=== PATIENT | female | born 1950 | race American Indian/Alaskan Native ===

== ENCOUNTER 2017-04-18 19:44 | Emergency (ER) | payer MEDICARE ==
[2017-04-18 20:07] VITALS: BP 138/90
[2017-04-18] MEDS ORDERED: DELTASONE PO ONE (20:16)
[2017-04-18] MEDS ORDERED: BENADRYL PO ONE (20:16)
[2017-04-18] MEDS ORDERED: PEPCID PO ONE (20:16)
--- NOTE | 2017-04-18 21:04 | Emergency Department Report ---
HPI - General Chief Complaint: Allergic Reaction Time Seen by Provider: 04/18/17 20:16 ED Past Medical Hx - Past Medical History Hx Hypertension: Yes - Surgical History Past Surgical History?: No - Social History Smoking Status: Never Smoker Substance Use Type: None ED Review of Systems ROS: Stated complaint: SWOLLEN FACE Other details as noted in HPI Physical Exam - Physical Exam Vital Signs: Vital Signs 04/18/17 19:51 Temperature 97.7 F Pulse Rate 97 H Respiratory 20 Rate Blood Pressure 138/90 O2 Sat by Pulse 100 Oximetry ED Course Vital Signs 04/18/17 19:51 Temperature 97.7 F Pulse Rate 97 H Respiratory 20 Rate Blood Pressure 138/90 O2 Sat by Pulse 100 Oximetry Critical care attestation.: If time is entered above; I have spent that time in minutes in the direct care of this critically ill patient, excluding procedure time. ED Disposition Condition: Stable Referrals: PRIMARY CARE [Primary Care Provider] - 3-5 Days
--- NOTE | 2017-04-18 21:16 | Emergency Department Report ---
Entered by EFREM THOMASON, acting as scribe for SHARAD CARRASCO PA. ED Allergic Reaction HPI - General Chief complaint: Allergic Reaction Stated complaint: SWOLLEN FACE Source: patient Mode of arrival: Ambulatory Limitations: No Limitations - History of Present Illness Initial Comments: 67 y/o female with a PMHx of HTN presents to the ED c/o an allergic reaction that began this morning. Patient's family states they believe she unknowingly took Lisinopril last night, which she is allergic too. She subsequently woke up this morning with facial swelling. In the ED, the patient c/o facial and lip swelling, but she denies SOB, rash, itching, difficulty breathing, nausea, and vomiting. Took 1 tablet of Benadryl this afternoon at 13:30 with no relief of swelling. MD Complaint: allergic reaction -: This morning Exposure: unknown, medication (possibly Lisinopril) Symptoms: facial swelling, lip swelling. denies: rash, itching, difficulty swallowing, difficulty breathing, orolingual swelling, hoarseness, dizziness, nausea, vomiting, abdominal pain Severity: mild Treatment Prior to Arrival: benadryl Previous Allergy History: other (Lisinopril) - Related Data Previous Rx's Medication Instructions Recorded Last Taken Type Cetirizine HCl [ZyrTEC] 10 mg PO QDAY #30 capsule 04/18/17 Unknown Rx Famotidine [Pepcid] 40 mg PO QHS #30 tablet 04/18/17 Unknown Rx Prednisone [predniSONE 5 mg (6-Day 5 mg PO .TAPER #1 tab.ds.pk 04/18/17 Unknown Rx Pack, 21 Tabs)] Allergies Allergy/AdvReac Type Severity Reaction Status Date / Time lisinopril Allergy Angioedema Verified 04/18/17 20:06 ED Review of Systems Comment: All other systems reviewed and negative Constitutional: no symptoms reported. denies: chills, fever, weakness ENT: denies: ear pain, throat pain Respiratory: no symptoms reported. denies: cough, orthopnea, shortness of breath, SOB with exertion, SOB at rest, stridor, wheezing, other (difficulty breathing) Cardiovascular: denies: chest pain, palpitations, edema, syncope Endocrine: no symptoms reported Gastrointestinal: denies: abdominal pain, nausea, vomiting Musculoskeletal: other (facial and lip swelling) Skin: denies: rash Neurological: denies: headache ED Past Medical Hx - Past Medical History Previous Medical History?: Yes Hx Hypertension: Yes - Surgical History Past Surgical History?: No - Social History Smoking Status: Never Smoker Substance Use Type: None - Medications Home Medications: Home Medications Medication Instructions Recorded Confirmed Last Taken Type Cetirizine HCl [ZyrTEC] 10 mg PO QDAY #30 capsule 04/18/17 Unknown Rx Famotidine [Pepcid] 40 mg PO QHS #30 tablet 04/18/17 Unknown Rx Prednisone [predniSONE 5 mg (6-Day 5 mg PO .TAPER #1 tab.ds.pk 04/18/17 Unknown Rx Pack, 21 Tabs)] ED Physical Exam - General Limitations: No Limitations General appearance: alert, in no apparent distress - Head Head exam: Present: atraumatic, normocephalic, other (facial and lip swelling) - Eye Eye exam: Present: normal appearance, PERRL, EOMI Pupils: Present: normal accommodation - ENT ENT exam: Present: normal exam, mucous membranes moist - Neck Neck exam: Present: normal inspection, full ROM. Absent: tenderness, lymphadenopathy - Respiratory Respiratory exam: Present: normal lung sounds bilaterally. Absent: respiratory distress, wheezes, rales, rhonchi, stridor - Cardiovascular Cardiovascular Exam: Present: regular rate, normal rhythm, normal heart sounds. Absent: systolic murmur, diastolic murmur, rubs, gallop - GI/Abdominal GI/Abdominal exam: Present: soft, normal bowel sounds - Extremities Exam Extremities exam: Present: normal inspection, full ROM - Back Exam Back exam: Present: normal inspection, full ROM - Neurological Exam Neurological exam: Present: alert, oriented X3 - Psychiatric Psychiatric exam: Present: normal affect, normal mood - Skin Skin exam: Present: warm, dry, intact, other (facial and lip swelling present). Absent: rash ED Course Vital Signs 04/18/17 19:51 Temperature 97.7 F Pulse Rate 97 H Respiratory 20 Rate Blood Pressure 138/90 O2 Sat by Pulse 100 Oximetry ED Medical Decision Making - Medical Decision Making Patient was evaluated in fast track area of ED by this provider. Patient presented with an allergic reaction that began this morning. In the ED, patient will be given Benadryl, Prednisone, and Pepcid. Patient is in no acute distress at this time and will be discharged home in care of family. Family instructed to continue giving Benadryl if swelling persists. Family instructed to follow up with PCP if patient's symptoms persist. Family verbalized understanding. They are encouraged to return to the emergency room for any worsening symptoms. ED Disposition Clinical Impression: Angio-edema Qualifiers: Encounter type: initial encounter Qualified Code(s): T78.3XXA - Angioneurotic edema, initial encounter Disposition: DISCHARGED TO HOME OR SELFCARE Is pt being admited?: No Does the pt Need Aspirin: No Condition: Stable Instructions: Angioedema (ED) Additional Instructions: Please take medications as prescribed. follow up with your primary care provider. Please do not take Lisinopril. Prescriptions: Famotidine [Pepcid] 40 mg PO QHS #30 tablet Cetirizine HCl [ZyrTEC] 10 mg PO QDAY #30 capsule Prednisone [predniSONE 5 mg (6-Day Pack, 21 Tabs)] 5 mg PO .TAPER #1 tab.ds.pk Referrals: PRIMARY CARE,MD [Primary Care Provider] - 3-5 Days Forms: Work/School Release Form(ED) This documentation as recorded by the KATELIN robb JASMINE,accurately reflects the service I personally performed and the decisions made by me, SHARAD CARRASCO PA.
== END 2017-04-18 21:33 | disposition home or self-care (01) ==
LOC: ED 19:44
DX: T78.3XXA Angioneurotic edema, initial encounter (principal); I10 Essential (primary) hypertension; Z88.8 Allergy status to other drugs, medicaments and biological substances
CPT/HCPCS: 99282; J7512

== ENCOUNTER 2017-10-11 07:47 | Inpatient (IN) | payer MEDICARE ==
[2017-10-11] MEDS ORDERED: VITAMIN B-1 100 MG, FOLVITE 1 MG, INFUVITE 10 ML in NACL 0.9% 1000 ML 1,000 ML IV ONE (08:28)
[2017-10-11] MEDS ORDERED: ATIVAN IV ONE (08:28)
--- NOTE | 2017-10-11 08:33 | Emergency Department Report ---
ED General Adult HPI - General Chief complaint: Seizure Stated complaint: SEIZURE Time Seen by Provider: 10/11/17 08:05 Source: family, EMS (ems notes not available at time of chart dictation), RN notes reviewed, old records reviewed Mode of arrival: Stretcher Limitations: Physical Limitation, Other (patient is intoxicated. Patient is a poor historian) - History of Present Illness Initial comments: This is a 67-year-old female. She is previously unknown to this provider. She recently moved here from [place] a few months ago. Has a history of daily alcohol consumption and hypertension. Does not have a primary care doctor. History is obtained primarily by speaking to the patient's daughter, Hannah; [phone] Patient is brought to the hospital for possible seizure-like activity. As per her daughter, the patient had a convulsion, patient has been consuming alcohol today. The patient has no complaints at this time. The patient indicates no exacerbating or relieving factors. Patient indicates no radiation. Patient denies headache, neck pain, chest pain, abdominal pain, shortness of breath, urinary symptoms, denies homicidality and suicidality. -: Sudden Severity scale (0 -10): 0 Consistency: now resolved Improves with: none Worsens with: none Associated Symptoms: confusion, syncope (convulsion versus syncope). denies: chest pain, cough - Related Data Home Medications Medication Instructions Recorded Confirmed Last Taken Hydrochlorothiazide [HCTZ] 25 mg PO QDAY 10/11/17 10/11/17 3 Days Ago NIFEdipine [Nifedipine ER] 10/11/17 3 Days Ago NIFEdipine [Nifedipine ER] 30 mg PO 10/11/17 3 Days Ago Rosuvastatin Calcium [Crestor] 20 mg PO DAILY 10/11/17 10/11/17 1 Day Ago busPIRone [Buspar] 60 mg PO BID 10/11/17 10/11/17 1 Day Ago hydrALAZINE [Apresoline] 25 mg PO Q8HR 10/11/17 10/11/17 3 Days Ago Previous Rx's Medication Instructions Recorded Last Taken Type Cetirizine HCl [ZyrTEC] 10 mg PO QDAY #30 capsule 04/18/17 Unknown Rx Famotidine [Pepcid] 40 mg PO QHS #30 tablet 04/18/17 Unknown Rx Prednisone [predniSONE 5 mg (6-Day 5 mg PO .TAPER #1 tab.ds.pk 04/18/17 Unknown Rx Pack, 21 Tabs)] Allergies Allergy/AdvReac Type Severity Reaction Status Date / Time lisinopril Allergy Angioedema Verified 04/18/17 20:06 ED Review of Systems ROS: Stated complaint: SEIZURE Other details as noted in HPI Comment: Unobtainable due to pts medical conditions ED Past Medical Hx - Past Medical History Hx Hypertension: Yes - Social History Smoking Status: Never Smoker Substance Use Type: Alcohol - Medications Home Medications: Home Medications Medication Instructions Recorded Confirmed Last Taken Type Cetirizine HCl [ZyrTEC] 10 mg PO QDAY #30 capsule 04/18/17 Unknown Rx Famotidine [Pepcid] 40 mg PO QHS #30 tablet 04/18/17 Unknown Rx Prednisone [predniSONE 5 mg (6-Day 5 mg PO .TAPER #1 tab.ds.pk 04/18/17 Unknown Rx Pack, 21 Tabs)] Hydrochlorothiazide [HCTZ] 25 mg PO QDAY 10/11/17 10/11/17 3 Days Ago History NIFEdipine [Nifedipine ER] 10/11/17 3 Days Ago History NIFEdipine [Nifedipine ER] 30 mg PO 10/11/17 3 Days Ago History Rosuvastatin Calcium [Crestor] 20 mg PO DAILY 10/11/17 10/11/17 1 Day Ago History busPIRone [Buspar] 60 mg PO BID 10/11/17 10/11/17 1 Day Ago History hydrALAZINE [Apresoline] 25 mg PO Q8HR 10/11/17 10/11/17 3 Days Ago History ED Physical Exam - General Limitations: Other (alcohol intoxication) General appearance: in no apparent distress, appears intoxicated - Head Head exam: Present: atraumatic, normocephalic - Eye Eye exam: Present: normal appearance (Pterygium noted b/l), EOMI, other (visual acuity intact to finger counting, color perception, reading at a close distance) - ENT ENT exam: Present: normal exam, normal orophraynx, mucous membranes moist, normal external ear exam - Neck Neck exam: Present: normal inspection, full ROM - Respiratory Respiratory exam: Present: normal lung sounds bilaterally. Absent: respiratory distress, chest wall tenderness - Cardiovascular Cardiovascular Exam: Present: normal rhythm, tachycardia, normal heart sounds. Absent: systolic murmur, diastolic murmur, rubs, gallop - GI/Abdominal GI/Abdominal exam: Present: soft, normal bowel sounds. Absent: distended, tenderness, guarding, rebound, rigid, pulsatile mass - Extremities Exam Extremities exam: Present: normal inspection, full ROM, normal capillary refill , other (there is no long bony tenderness. The pelvis is stable.). Absent: calf tenderness - Back Exam Back exam: Present: normal inspection, full ROM. Absent: tenderness, paraspinal tenderness, vertebral tenderness - Neurological Exam Neurological exam: Present: alert (alert to name and location), CN II-XII intact , other (Extraocular movements intact. Tongue midline. No facial droop. Facial sensation intact to light touch in the V1, V2, V3 distribution bilaterally. 5 and 5 strength in 4 extremities.. Sensation is intact to light touch in 4 extremities.). Absent: motor sensory deficit - Psychiatric Psychiatric exam: Absent: homicidal ideation, suicidal ideation - Skin Skin exam: Present: warm, dry, intact, normal color. Absent: rash ED Course Vital Signs 10/11/17 10/11/17 10/11/17 07:52 08:00 08:03 Temperature 98.6 F Pulse Rate 165 H 128 H Respiratory 17 18 Rate Blood Pressure 186/113 203/122 Blood Pressure 203/122 [Left] O2 Sat by Pulse 96 99 97 Oximetry 10/11/17 10/11/17 10/11/17 08:30 09:00 09:30 Temperature Pulse Rate 131 H 121 H 112 H Respiratory 13 19 21 Rate Blood Pressure 174/105 185/107 177/102 Blood Pressure [Left] O2 Sat by Pulse 96 93 96 Oximetry 10/11/17 10/11/17 10/11/17 10:00 10:30 11:00 Temperature Pulse Rate 115 H 104 H 106 H Respiratory 21 21 25 H Rate Blood Pressure 183/100 173/101 183/100 Blood Pressure 173/101 [Left] O2 Sat by Pulse 95 96 Oximetry 10/11/17 10/11/17 11:21 11:30 Temperature Pulse Rate 103 H 118 H Respiratory 20 Rate Blood Pressure 207/110 176/87 Blood Pressure 176/87 [Left] O2 Sat by Pulse 97 Oximetry - Reevaluation(s) Reevaluation #1: 10/11/17 08:49 Differential diagnosis, including but not limited to: Intracranial injury, cervical spine injury, alcohol withdrawal seizure, alcohol dependency, epileptiform seizure, pneumonia, hyperammonemia, urinary tract infection, pelvic fracture, electrolyte derangement Assessment and plan: 67-year-old female with nonspecific convulsant today. She is afebrile tachycardic and hypertensive. She is intoxicated at this time does not require 1013. She is pleasant, calm and cooperative at this time. Her daughter does give verbal permission for chemical sedation if the patient requires it. Noncontrast CT scan of the brain and cervical spine are pending. X-ray of the chest and pelvis are pending. Laboratory studies, toxicology studies, urinalysis pending. Patient will be treated empirically with Ativan as she has some tongue fasciculations, banana bag with thiamine. Patient most likely to be admitted. Reevaluation #2: 10/11/17 10:34 CT scan of the brain and cervical spine negative. X-rays unremarkable. Laboratory studies demonstrate nonspecific lactic acidosis, otherwise unremarkable. This is most likely secondary to alcohol consumption, and should clear with thiamine and IV fluids. Case is presented to the Hospital physician , Dr Demarco., who accepts the patient for presumed alcohol withdrawal seizure. ED Medical Decision Making - Lab Data Result diagrams: 10/11/17 08:47 10/11/17 08:47 Vital Signs 10/11/17 08:03 Temperature 98.6 F Pulse Rate 128 H Respiratory 18 Rate Blood Pressure 203/122 Blood Pressure 203/122 [Left] O2 Sat by Pulse 97 Oximetry - EKG Data -: EKG Interpreted by Me - EKG Data When compared to previous EKG there are: previous EKG unavailable 10/11/17 08:50 Motion artifact, sinus tachycardia, left ventricular hypertrophy, not having chest pain, not morphologically consistent with ST elevation myocardial infarction. QTC prolonged at 441 ms. Normal axis. - Radiology Data Radiology results: report reviewed, image reviewed interpreted by me: X-ray of the chest is negative for acute disease Noncontrast CT scan of the brain and cervical spine negative for acute disease. Chronic findings are noted. Critical care attestation.: If time is entered above; I have spent that time in minutes in the direct care of this critically ill patient, excluding procedure time. ED Disposition Clinical Impression: Alcohol withdrawal seizure Qualifiers: Complication of substance-induced condition: with unspecified complication Qualified Code(s): F10.239 - Alcohol dependence with withdrawal, unspecified Disposition: DC-09 OP ADMIT IP TO THIS HOSP Is pt being admited?: Yes Condition: Good Referrals: PRIMARY CARE, [Primary Care Provider] - 3-5 Days
[2017-10-11 09:07] LABS: Basophils % (Auto) 0.8 % (0.0-1.8); Eosinophils % (Auto) 1.8 % (0.0-4.3); Hematocrit 40.6 % (30.3-42.9); Hemoglobin 13.5 gm/dl (10.1-14.3); Mean Corpuscular HGB Conc 33 % (30-34); Mean Corpuscular Hemoglobin 29 pg (28-32); Mean Corpuscular Volume 86 fl (79-97); Platelet Count 157 K/mm3 (140-440); Red Cell Distribution Width 13.2 % (13.2-15.2); White Blood Count 4.2 K/mm3 (4.5-11.0)
--- NOTE | 2017-10-11 09:25 | Cat Scan Report ---
CT HEAD WITHOUT CONTRAST: 10/11/17 07:47:00 CLINICAL: Seizure.. TECHNIQUE: 2.5-mm noncontrast scans. COMPARISON:None FINDINGS: The ventricles and sulci are large for age. There is also a cavum septum pellucidum and a cavum vergae which are normal variants of anatomy. Moderate bilateral periventricular white matter hypodensities. Right basal ganglia chronic lacunar infarct. No suspicious focal hypodensity. No mass or mass effect. No hemorrhage, edema or extra-axial collection. The sinuses are clear. Normal orbits and soft tissues. The calvarium and skull base are intact. IMPRESSION: Global cortical atrophy, chronic right basal ganglia lacunar infarct and chronic white matter microangiopathy. No evidence of acute infarct or hemorrhage.
[2017-10-11 09:27] LABS: Alanine Aminotransferase 18 units/L (7-56); Albumin 4.9 g/dL (3.9-5); Albumin/Globulin Ratio 1.4 %; Alkaline Phosphatase 82 units/L (35-129); Anion Gap 21 mmol/L; BUN/Creatinine Ratio 14; Blood Urea Nitrogen 10 mg/dL (7-17); Calcium 9.8 mg/dL (8.4-10.2); Carbon Dioxide 28 mmol/L (22-30); Glucose 113 mg/dL (65-100); Sodium 136 mmol/L (137-145); Total Protein 8.5 g/dL (6.3-8.2)
--- NOTE | 2017-10-11 09:29 | Cat Scan Report ---
CT CERVICAL SPINE WITHOUT CONTRAST:10/11/17 07:47:00 CLINICAL: Fall and neck pain. TECHNIQUE: Volumetric acquisition and 1.25-mm scan reconstructions without contrast. Sagittal and coronal reformats were performed. FINDINGS: Normal vertebral body alignment through T1. Extensive multilevel degenerative disc disease with decreased height of vertebral bodies and vertebral body endplate irregularities from C3-4 through C7-T1. Large anterior osteophytes at those levels. No fracture. Multilevel facet joint arthropathy, worse on the right at C4-5 and C3-4. Multilevel neural foraminal narrowing secondary to osteophytes. No fracture or subluxation. Normal soft tissues and airway. No apparent disc protrusions or bulges. IMPRESSION: No apparent traumatic injury. Extensive degenerative change from C3-4 through C7-T1.
[2017-10-11 10:05] LABS: Urine Drugs of Abuse Note Disclamer
--- NOTE | 2017-10-11 10:07 | XRay Report ---
X-RAY AP PELVIS ONE VIEW: 10/11/17 07:47:00 CLINICAL: Fall and pain. FINDINGS: No fracture or dislocation. Mild degenerative changes in the hips. The SI joints are normal. Degenerative changes in the lower lumbar spine. Large right iliac enthesophyte. IMPRESSION: Degenerative change and otherwise normal.
--- NOTE | 2017-10-11 10:08 | XRay Report ---
AP CHEST : 10/11/17 07:47:00 CLINICAL: Tachycardia, alcohol withdrawal and fall COMPARISON:None FINDINGS: Normal heart and pulmonary vessels. The lungs are under expanded. No airspace disease or pleural effusion. The bones and soft tissues are unremarkable.No fracture identified. No pneumothorax. IMPRESSION: Negative chest.
[2017-10-11 10:15] LABS: Bilirubin,Urine NEG (Negative); Blood,Urine NEG (Negative); Ketones,Urine NEG (Negative); Leukocyte Esterase,Urine NEG (Negative); Nitrite,Urine NEG (Negative); WBC,Urine < 1.0 /HPF (0.0-6.0)
[2017-10-11] MEDS ORDERED: APRESOLINE IV ONE (11:04)
[2017-10-11] MEDS ORDERED: TESSALON PERLES PO ONE (11:05)
--- NOTE | 2017-10-11 12:04 | History and Physical Report ---
History of Present Illness Date of examination: 10/11/17 Date of admission: 10/11/2017 Chief complaint: Chief complaint: Seizures morning around 7 AM History of present illness: History of Present Illness: This 67-year-old -[place] female with history of hypertension and hyperlipidemia brought in for new onset seizures. Patient had 1 beer this morning. Patient drinks about 6 pack beer every day for the last many years. Patient had tonic-clonic movement and rolling of eyes for about a minute. Witnessed by her daughter. Altered sensorium after the seizure but in normal state now. Daughter says that she had seizures long time ago probably 2 years ago. Not on any antiseizure medication. No fever no chills. No shortness of breath. No chest pain. Other than alcohol no precipitating event. Past Medical History Hx Hypertension: Yes - Social History Smoking Status: Never Smoker Substance Use Type: Alcohol 6 pack beer every day for the last many years. Family history: Hypertension - Medications Home Medications: Home Medications Medication Instructions Recorded Confirmed Last Taken Type Cetirizine HCl [ZyrTEC] 10 mg PO QDAY #30 capsule 04/18/17 Unknown Rx Famotidine [Pepcid] 40 mg PO QHS #30 tablet 04/18/17 Unknown Rx Prednisone [predniSONE 5 mg (6-Day 5 mg PO .TAPER #1 tab.ds.pk 04/18/17 Unknown Rx Pack, 21 Tabs)] Hydrochlorothiazide [HCTZ] 25 mg PO QDAY 10/11/17 10/11/17 3 Days Ago History NIFEdipine [Nifedipine ER] 10/11/17 3 Days Ago History NIFEdipine [Nifedipine ER] 30 mg PO 10/11/17 3 Days Ago History Rosuvastatin Calcium [Crestor] 20 mg PO DAILY 10/11/17 10/11/17 1 Day Ago History busPIRone [Buspar] 60 mg PO BID 10/11/17 10/11/17 1 Day Ago History hydrALAZINE [Apresoline] 25 mg PO Q8HR 10/11/17 10/11/17 3 Days Ago History Medications and Allergies Allergies Allergy/AdvReac Type Severity Reaction Status Date / Time lisinopril Allergy Angioedema Verified 04/18/17 20:06 Home Medications Medication Instructions Recorded Confirmed Last Taken Type Cetirizine HCl [ZyrTEC] 10 mg PO QDAY #30 capsule 04/18/17 Unknown Rx Famotidine [Pepcid] 40 mg PO QHS #30 tablet 04/18/17 Unknown Rx Prednisone [predniSONE 5 mg (6-Day 5 mg PO .TAPER #1 tab.ds.pk 04/18/17 Unknown Rx Pack, 21 Tabs)] Hydrochlorothiazide [HCTZ] 25 mg PO QDAY 10/11/17 10/11/17 3 Days Ago History NIFEdipine [Nifedipine ER] 10/11/17 3 Days Ago History NIFEdipine [Nifedipine ER] 30 mg PO 10/11/17 3 Days Ago History Rosuvastatin Calcium [Crestor] 20 mg PO DAILY 10/11/17 10/11/17 1 Day Ago History busPIRone [Buspar] 60 mg PO BID 10/11/17 10/11/17 1 Day Ago History hydrALAZINE [Apresoline] 25 mg PO Q8HR 10/11/17 10/11/17 3 Days Ago History Active Meds: Active Medications Thiamine HCl 100 mg/ Folic Acid 1 mg/ Multivitamins/Minerals 10 ml/ Sodium Chloride 1,011.2 mls @ 250 mls/hr IV ONCE.ED ONE Stop: 10/11/17 12:30 Last Admin: 10/11/17 10:15 Dose: 250 mls/hr Review of Systems All systems: negative Constitutional: no weight loss, no weight gain, no fever, no chills, no sweats, no night sweats Ears, nose, mouth and throat: no ear pain, no dysphagia, no hoarseness, no sore throat, no swelling in mouth, no swelling in throat Breasts: deferred Cardiovascular: no chest pain, no orthopnea, no palpitations, no rapid/ irregular heart beat, no edema, no syncope, no lightheadedness, no shortness of breath Respiratory: no cough, no cough with sputum, no excessive sputum, no hemoptysis , no shortness of breath, no dyspnea on exertion Gastrointestinal: no abdominal pain, no nausea, no vomiting, no diarrhea, no constipation, no change in bowel habits, no hematemesis, no coffee ground emesis Genitourinary Female: no dysuria, no urinary frequency, no urgency, no stress incontinence, no post void dribbling Menstruation: ammenorrhea Rectal: no incontinence, no bleeding Musculoskeletal: no neck stiffness, no neck pain, no shooting arm pain, no arm numbness/tingling, no low back pain, no shooting leg pain, no leg numbness/ tingling, no redness of joints Integumentary: no rash, no pruritis, no redness, no sores, no wounds, no jaundice, no boils, no blisters Neurological: seizures, no syncope Psychiatric: anxiety, no memory loss Endocrine: no cold intolerance, no heat intolerance, no polyphagia, no excessive thirst, no polydipsia, no polyuria Hematologic/Lymphatic: no easy bruising, no easy bleeding Allergic/Immunologic: no urticaria, no allergic rhinitis, no wheezing Exam - Constitutional Vitals: Temp Pulse Resp BP Pulse Ox 98.6 F 118 H 20 176/87 97 10/11/17 08:03 10/11/17 11:30 10/11/17 11:30 10/11/17 11:30 10/11/17 11:30 General appearance: Present: no acute distress, well-nourished - EENT Eyes: Present: PERRL ENT: hearing intact, clear oral mucosa - Neck Neck: Present: supple, normal ROM - Respiratory Respiratory effort: normal Respiratory: bilateral: CTA - Cardiovascular Heart rate: 80 Rhythm: regular Heart Sounds: Present: S1 & S2. Absent: rub, click - Extremities Extremities: pulses symmetrical, No edema Peripheral Pulses: within normal limits - Abdominal General gastrointestinal: Present: soft, non-tender, non-distended, normal bowel sounds Female genitourinary: Present: normal - Rectal Rectal Exam: deferred - Integumentary Integumentary: Present: clear, warm, dry - Musculoskeletal Musculoskeletal: gait normal, strength equal bilaterally - Psychiatric Psychiatric: appropriate mood/affect, intact judgment & insight, cooperative - Neurologic Neurologic: CNII-XII intact, moves all extremities - Allied Health Allied health notes reviewed: nursing, case management Results - Labs CBC & Chem 7: 10/11/17 08:47 10/11/17 08:47 Labs: Laboratory Last Values WBC 4.2 K/mm3 (4.5-11.0) L 10/11/17 08:47 RBC 4.70 M/mm3 (3.65-5.03) 10/11/17 08:47 Hgb 13.5 gm/dl (10.1-14.3) 10/11/17 08:47 Hct 40.6 % (30.3-42.9) 10/11/17 08:47 MCV 86 fl (79-97) 10/11/17 08:47 MCH 29 pg (28-32) 10/11/17 08:47 MCHC 33 % (30-34) 10/11/17 08:47 RDW 13.2 % (13.2-15.2) 10/11/17 08:47 Plt Count 157 K/mm3 (140-440) 10/11/17 08:47 Lymph % (Auto) 15.4 % (13.4-35.0) 10/11/17 08:47 [place] % (Auto) 7.8 % (0.0-7.3) H 10/11/17 08:47 Eos % (Auto) 1.8 % (0.0-4.3) 10/11/17 08:47 Baso % (Auto) 0.8 % (0.0-1.8) 10/11/17 08:47 Lymph # 0.7 K/mm3 (1.2-5.4) L 10/11/17 08:47 Bee # 0.3 K/mm3 (0.0-0.8) 10/11/17 08:47 Eos # 0.1 K/mm3 (0.0-0.4) 10/11/17 08:47 Baso # 0.0 K/mm3 (0.0-0.1) 10/11/17 08:47 Seg Neutrophils % 74.2 % (40.0-70.0) H 10/11/17 08:47 Seg Neutrophils # 3.1 K/mm3 (1.8-7.7) 10/11/17 08:47 Sodium 136 mmol/L (137-145) L 10/11/17 08:47 Potassium 4.0 mmol/L (3.6-5.0) 10/11/17 08:47 Chloride 91.0 mmol/L (98-107) L 10/11/17 08:47 Carbon Dioxide 28 mmol/L (22-30) 10/11/17 08:47 Anion Gap 21 mmol/L 10/11/17 08:47 BUN 10 mg/dL (7-17) 10/11/17 08:47 Creatinine 0.7 mg/dL (0.7-1.2) 10/11/17 08:47 Estimated GFR > 60 ml/min 10/11/17 08:47 BUN/Creatinine Ratio 14 % 10/11/17 08:47 Glucose 113 mg/dL (65-100) H 10/11/17 08:47 Lactic Acid 2.90 mmol/L (0.7-2.0) H* 10/11/17 08:47 Calcium 9.8 mg/dL (8.4-10.2) 10/11/17 08:47 Magnesium 1.70 mg/dL (1.7-2.3) 10/11/17 08:47 Total Bilirubin 0.70 mg/dL (0.1-1.2) 10/11/17 08:47 AST 30 units/L (5-40) 10/11/17 08:47 ALT 18 units/L (7-56) 10/11/17 08:47 Alkaline Phosphatase 82 units/L (35-129) 10/11/17 08:47 Ammonia 25.0 umol/L (25-60) 10/11/17 08:47 Total Protein 8.5 g/dL (6.3-8.2) H 10/11/17 08:47 Albumin 4.9 g/dL (3.9-5) 10/11/17 08:47 Albumin/Globulin Ratio 1.4 % 10/11/17 08:47 TSH 0.987 mlU/mL (0.270-4.200) 10/11/17 08:47 Urine Color Yellow (Yellow) 10/11/17 10:05 Urine Turbidity Clear (Clear) 10/11/17 10:05 Urine pH 7.0 (5.0-7.0) 10/11/17 10:05 Ur Specific [place] 1.011 (1.003-1.030) 10/11/17 10:05 Urine Protein 30 mg/dl mg/dL (Negative) 10/11/17 10:05 Urine Glucose (UA) Neg mg/dL (Negative) 10/11/17 10:05 Urine Ketones Neg mg/dL (Negative) 10/11/17 10:05 Urine Blood Neg (Negative) 10/11/17 10:05 Urine Nitrite Neg (Negative) 10/11/17 10:05 Urine Bilirubin Neg (Negative) 10/11/17 10:05 Urine Urobilinogen 2.0 mg/dL (<2.0) 10/11/17 10:05 Ur Leukocyte Esterase Neg (Negative) 10/11/17 10:05 Urine WBC (Auto) < 1.0 /HPF (0.0-6.0) 10/11/17 10:05 Urine RBC (Auto) 1.0 /HPF (0.0-6.0) 10/11/17 10:05 U Epithel Cells (Auto) 1.0 /HPF (0-13.0) 10/11/17 10:05 Salicylates < 0.3 mg/dL (2.8-20.0) L 10/11/17 08:47 Urine Opiates Screen Presumptive negative 10/11/17 10:05 Urine Methadone Screen Presumptive negative 10/11/17 10:05 Acetaminophen < 15.0 ug/mL (10.0-30.0) 10/11/17 08:47 Ur Barbiturates Screen Presumptive negative 10/11/17 10:05 Ur Phencyclidine Scrn Presumptive negative 10/11/17 10:05 Ur Amphetamines Screen Presumptive negative 10/11/17 10:05 U Benzodiazepines Scrn Presumptive negative 10/11/17 10:05 Urine Cocaine Screen Presumptive negative 10/11/17 10:05 U Marijuana (THC) Screen Presumptive negative 10/11/17 10:05 Drugs of Abuse Note Disclamer 10/11/17 10:05 Plasma/Serum Alcohol < 0.01 gm% (0-0.07) 10/11/17 08:47 Short CBC 10/11/17 Range/Units 08:47 WBC 4.2 L (4.5-11.0) K/mm3 Hgb 13.5 (10.1-14.3) gm/dl Hct 40.6 (30.3-42.9) % Plt Count 157 (140-440) K/mm3 BMP 10/11/17 08:47 Sodium 136 L Potassium 4.0 Chloride 91.0 L Carbon Dioxide 28 BUN 10 Creatinine 0.7 Glucose 113 H Calcium 9.8 Liver Function 10/11/17 Range/Units 08:47 Total Bilirubin 0.70 (0.1-1.2) mg/dL AST 30 (5-40) units/L ALT 18 (7-56) units/L Alkaline Phosphatase 82 (35-129) units/L Albumin 4.9 (3.9-5) g/dL Urine 10/11/17 Range/Units 10:05 Urine Color Yellow (Yellow) Urine pH 7.0 (5.0-7.0) Ur Specific [place] 1.011 (1.003-1.030) Urine Protein 30 mg/dl (Negative) mg/dL Urine Glucose (UA) Neg (Negative) mg/dL - Imaging and Cardiology EKG: report reviewed (sinus tachycardia heart rate of 120/m) CT Scan - head: report reviewed (no acute findings final impression global cortical atrophy, chronic right basal ganglia lacunar infarct and chronic white matter microangiopathy no evidence of acute infarct or hemorrhage) Imaging and Cardiology: CT C-spine degenerative disc disease no acute findings Assessment and Plan Advance Directives: Yes (full code) VTE prophylaxis?: Chemical Plan of care discussed with patient/family: Yes - Patient Problems (1) New onset seizure Current Visit: Yes Status: Acute Plan to address problem: This episode seems to be a new onset seizure. Daughter describes her seizures 3 years ago but not sure. Patient not on any antiepileptic medication. Will start the patient on IV Keppra and IV fluids and transition to by mouth Keppra. (2) Hypertension Current Visit: Yes Status: Chronic Qualifiers: Hypertension type: essential hypertension Qualified Code(s): I10 - Essential (primary) hypertension Plan to address problem: We will start the patient on losartan 100 mg once a day and Norvasc 10 mg once a day. (3) EtOH dependence Current Visit: Yes Status: Chronic Qualifiers: Substance use status: uncomplicated Complication of substance-induced condition: C Qualified Code(s): F10.20 - Alcohol dependence, uncomplicated Plan to address problem: No delirium tremens at this point. Will start on CIWA protocol. IV fluids for now. Mental health consult if she needs help with alcohol dependence (4) DVT prophylaxis Current Visit: Yes Status: Acute Plan to address problem: Lovenox for 30 mg subcutaneous initiated
[2017-10-11] MEDS ORDERED: NON-FORMULARY (Famotidine [Pepcid] 20 MG) PO SCH (12:15)
[2017-10-11] MEDS ORDERED: MILK OF MAGNESIA PO PRN (12:18)
[2017-10-11] MEDS ORDERED: TYLENOL PO PRN (12:18)
[2017-10-11] MEDS ORDERED: ZOFRAN IV PRN (12:18)
[2017-10-11] MEDS ORDERED: DULCOLAX PR PRN (12:18)
[2017-10-11] MEDS ORDERED: LIBRIUM PO PRN ×2 (12:25)
[2017-10-11] MEDS ORDERED: HALDOL IV PRN ×2 (12:25)
[2017-10-11] MEDS ORDERED: ATIVAN IV PRN ×3 (12:25)
[2017-10-11] MEDS ORDERED: ATIVAN PO PRN ×2 (12:25)
[2017-10-11] MEDS: PEPCID PO SCH ×2 (13:06→21:52)
[2017-10-11] MEDS: KEPPRA 750 MG in NACL 0.9% 100 ML IV SCH ×2 (13:06→21:53)
[2017-10-11] MEDS: LOVENOX SUB-Q SCH (13:07)
[2017-10-11 13:21] LABS: Albumin 4.3 g/dL (3.9-5); Magnesium 1.9 mg/dL (1.7-2.3)
[2017-10-11] MEDS: D5NS 1,000 ML IV SCH (17:07)
[2017-10-12] MEDS: D5NS 1,000 ML IV SCH ×2 (01:49→16:00)
[2017-10-12 05:53] LABS: Basophils % (Auto) 0.5 % (0.0-1.8); Eosinophils % (Auto) 2.5 % (0.0-4.3); Hematocrit 37.6 % (30.3-42.9); Hemoglobin 12.5 gm/dl (10.1-14.3); Mean Corpuscular HGB Conc 33 % (30-34); Mean Corpuscular Hemoglobin 29 pg (28-32); Mean Corpuscular Volume 87 fl (79-97); Platelet Count 139 K/mm3 (140-440); Red Blood Count 4.35 M/mm3 (3.65-5.03); Red Cell Distribution Width 13.4 % (13.2-15.2); White Blood Count 4.1 K/mm3 (4.5-11.0)
[2017-10-12 06:24] LABS: Alanine Aminotransferase 13 units/L (7-56); Albumin 4.2 g/dL (3.9-5); Albumin/Globulin Ratio 1.3 %; Alkaline Phosphatase 71 units/L (35-129); Anion Gap 19 mmol/L; BUN/Creatinine Ratio 10; Blood Urea Nitrogen 7 mg/dL (7-17); Calcium 8.8 mg/dL (8.4-10.2); Carbon Dioxide 26 mmol/L (22-30); Chloride 97.1 mmol/L (98-107); Glucose 102 mg/dL (65-100); Potassium 3.4 mmol/L (3.6-5.0); Sodium 139 mmol/L (137-145); Total Protein 7.4 g/dL (6.3-8.2)
[2017-10-12] MEDS: PEPCID PO SCH ×2 (10:47→22:23)
[2017-10-12] MEDS: KEPPRA 750 MG in NACL 0.9% 100 ML IV SCH (10:47)
[2017-10-12] MEDS: LOVENOX SUB-Q SCH (10:48)
[2017-10-12] MEDS ORDERED: PNEUMOVAX 23 IM ONE (12:00)
[2017-10-12] MEDS ORDERED: Fluarix Quad 2017-2018(36 MOS+ IM ONE (12:00)
--- NOTE | 2017-10-12 20:50 | Progress Note ---
Assessment and Plan - Patient Problems (1) New onset seizure Current Visit: Yes Status: Acute Plan to address problem: This episode seems to be a new onset seizure. Daughter describes her seizures 3 years ago but not sure. Patient not on any antiepileptic medication. Will start the patient on IV Keppra and IV fluids and transition to by mouth Keppra. (2) Hypertension Current Visit: Yes Status: Chronic Qualifiers: Hypertension type: essential hypertension Qualified Code(s): I10 - Essential (primary) hypertension Plan to address problem: We will start the patient on losartan 100 mg once a day and Norvasc 10 mg once a day. (3) EtOH dependence Current Visit: Yes Status: Chronic Qualifiers: Substance use status: uncomplicated Complication of substance-induced condition: C Qualified Code(s): F10.20 - Alcohol dependence, uncomplicated Plan to address problem: No delirium tremens at this point. Will start on CIWA protocol. IV fluids for now. Mental health consult if she needs help with alcohol dependence (4) DVT prophylaxis Current Visit: Yes Status: Acute Plan to address problem: Lovenox for 30 mg subcutaneous initiated Subjective Date of service: 10/12/17 Principal diagnosis: New onset seizures Interval history: Symptomatically better Objective - Constitutional Vitals: Vital Signs - 12hr 10/12/17 10/12/17 13:11 16:24 Temperature 97.9 F 99.0 F Pulse Rate 96 H 95 H Respiratory 20 20 Rate Blood Pressure 182/90 184/94 O2 Sat by Pulse 98 99 Oximetry General appearance: Present: no acute distress, well-nourished - EENT Eyes: PERRL, EOM intact ENT: hearing intact, clear oral mucosa Ears: bilateral: normal - Neck Neck: supple, normal ROM - Respiratory Respiratory effort: normal Respiratory: bilateral: CTA - Breasts Breasts: normal - Cardiovascular Rhythm: regular Heart Sounds: Present: S1 & S2. Absent: gallop, rub Extremities: pulses intact, No edema, normal color, Full ROM - Gastrointestinal General gastrointestinal: Present: soft, non-tender, non-distended, normal bowel sounds - Genitourinary Female genitourinary: normal - Integumentary Integumentary: clear, warm, dry - Musculoskeletal Musculoskeletal: 1, strength equal bilaterally - Neurologic Neurologic: moves all extremities - Psychiatric Psychiatric: memory intact, appropriate mood/affect, intact judgment & insight - Labs CBC & Chem 7: 10/12/17 05:16 10/12/17 05:07 Labs: Abnormal lab results 10/12/17 10/12/17 Range/Units 05:07 05:16 WBC 4.1 L (4.5-11.0) K/mm3 Plt Count 139 L (140-440) K/mm3 [place] % (Auto) 11.6 H (0.0-7.3) % Lymph # 0.9 L (1.2-5.4) K/mm3 Potassium 3.4 L (3.6-5.0) mmol/L Chloride 97.1 L (98-107) mmol/L Glucose 102 H (65-100) mg/dL
[2017-10-12] MEDS: KEPPRA PO SCH (22:23)
[2017-10-13] MEDS: APRESOLINE IV PRN ×2 (00:25→09:38)
[2017-10-13] MEDS: ROBITUSSIN PO PRN ×2 (00:25→09:43)
[2017-10-13] MEDS ORDERED: MAGNESIUM SULFATE 1 GM in NACL 0.9% 50 ML IV ONE (02:24)
[2017-10-13] MEDS: D5NS 1,000 ML IV SCH ×2 (03:28→14:24)
[2017-10-13] MEDS: PEPCID PO SCH ×2 (09:25→22:18)
[2017-10-13] MEDS: LOVENOX SUB-Q SCH (09:25)
[2017-10-13] MEDS: KEPPRA PO SCH ×2 (09:25→22:17)
--- NOTE | 2017-10-13 09:45 | Progress Note ---
Assessment and Plan Assessment and plan: 67-year-old woman with past medical history of previous seizure years ago. Alcohol dependence, heavy drinker. Brought in by daughter for convulsive seizure. Status epilepticus No acute findings on CT head, obtained MR brain, obtain neurology consult, continue Keppra which was started on this admission Hypertensive urgency We'll review her medications optimized and today and give IV hydralazine until blood pressure is better controlled EtOH dependence Continue CIWA protocol, patient has been given outpatient resources for alcohol cessation. The patient and her daughter were both unremarkable and counseled greater than 10 minutes on cessation History Interval history: No further episodes of seizures. Patient feels well. Hospitalist Physical - Physical exam Narrative exam: General.: Appears well, no distress, nontoxic HEENT: Moist mucous membranes, extraocular muscles intact, no lymphadenopathy Neck: supple Cardiac: S1-S2 heard Lungs: clear to auscultation bilaterally Abdomen: soft , nontender, nondistended, bowel sounds positive Extremities: no edema clubbing or cyanosis Skin: no rash or lesions Neurologic: no gross focal deficits, lip smacking Psych: appropriate behavior, appropriate mood, corporative, judgment intact - Constitutional Vitals: Temp Pulse Resp BP Pulse Ox 98.4 F 97 H 20 200/111 99 10/13/17 07:57 10/13/17 07:57 10/13/17 07:57 10/13/17 09:38 10/13/17 07:57 General appearance: Present: no acute distress, well-nourished Results - Labs CBC & Chem 7: 10/12/17 05:16 10/12/17 05:07 Labs: Laboratory Last Values WBC 4.1 K/mm3 (4.5-11.0) L 10/12/17 05:16 RBC 4.35 M/mm3 (3.65-5.03) 10/12/17 05:16 Hgb 12.5 gm/dl (10.1-14.3) 10/12/17 05:16 Hct 37.6 % (30.3-42.9) 10/12/17 05:16 MCV 87 fl (79-97) 10/12/17 05:16 MCH 29 pg (28-32) 10/12/17 05:16 MCHC 33 % (30-34) 10/12/17 05:16 RDW 13.4 % (13.2-15.2) 10/12/17 05:16 Plt Count 139 K/mm3 (140-440) L 10/12/17 05:16 Lymph % (Auto) 22.5 % (13.4-35.0) 10/12/17 05:16 [place] % (Auto) 11.6 % (0.0-7.3) H 10/12/17 05:16 Eos % (Auto) 2.5 % (0.0-4.3) 10/12/17 05:16 Baso % (Auto) 0.5 % (0.0-1.8) 10/12/17 05:16 Lymph # 0.9 K/mm3 (1.2-5.4) L 10/12/17 05:16 [place] # 0.5 K/mm3 (0.0-0.8) 10/12/17 05:16 Eos # 0.1 K/mm3 (0.0-0.4) 10/12/17 05:16 Baso # 0.0 K/mm3 (0.0-0.1) 10/12/17 05:16 Seg Neutrophils % 62.9 % (40.0-70.0) 10/12/17 05:16 Seg Neutrophils # 2.6 K/mm3 (1.8-7.7) 10/12/17 05:16 Sodium 139 mmol/L (137-145) 10/12/17 05:07 Potassium 3.4 mmol/L (3.6-5.0) L 10/12/17 05:07 Chloride 97.1 mmol/L (98-107) L 10/12/17 05:07 Carbon Dioxide 26 mmol/L (22-30) 10/12/17 05:07 Anion Gap 19 mmol/L 10/12/17 05:07 BUN 7 mg/dL (7-17) 10/12/17 05:07 Creatinine 0.7 mg/dL (0.7-1.2) 10/12/17 05:07 Estimated GFR > 60 ml/min 10/12/17 05:07 BUN/Creatinine Ratio 10 % 10/12/17 05:07 Glucose 102 mg/dL (65-100) H 10/12/17 05:07 Hemoglobin A1c 5.2 % (4-6) 10/11/17 12:41 Lactic Acid 2.90 mmol/L (0.7-2.0) H* 10/11/17 08:47 Calcium 8.8 mg/dL (8.4-10.2) 10/12/17 05:07 Magnesium 1.40 mg/dL (1.7-2.3) L 10/13/17 01:09 Total Bilirubin 1.10 mg/dL (0.1-1.2) 10/12/17 05:07 AST 23 units/L (5-40) 10/12/17 05:07 ALT 13 units/L (7-56) 10/12/17 05:07 Alkaline Phosphatase 71 units/L (35-129) 10/12/17 05:07 Ammonia 60.0 umol/L (25-60) 10/11/17 12:41 Total Protein 7.4 g/dL (6.3-8.2) 10/12/17 05:07 Albumin 4.2 g/dL (3.9-5) 10/12/17 05:07 Albumin/Globulin Ratio 1.3 % 10/12/17 05:07 TSH 0.987 mlU/mL (0.270-4.200) 10/11/17 08:47 Urine Color Yellow (Yellow) 10/11/17 10:05 Urine Turbidity Clear (Clear) 10/11/17 10:05 Urine pH 7.0 (5.0-7.0) 10/11/17 10:05 Ur Specific [place] 1.011 (1.003-1.030) 10/11/17 10:05 Urine Protein 30 mg/dl mg/dL (Negative) 10/11/17 10:05 Urine Glucose (UA) Neg mg/dL (Negative) 10/11/17 10:05 Urine Ketones Neg mg/dL (Negative) 10/11/17 10:05 Urine Blood Neg (Negative) 10/11/17 10:05 Urine Nitrite Neg (Negative) 10/11/17 10:05 Urine Bilirubin Neg (Negative) 10/11/17 10:05 Urine Urobilinogen 2.0 mg/dL (<2.0) 10/11/17 10:05 Ur Leukocyte Esterase Neg (Negative) 10/11/17 10:05 Urine WBC (Auto) < 1.0 /HPF (0.0-6.0) 10/11/17 10:05 Urine RBC (Auto) 1.0 /HPF (0.0-6.0) 10/11/17 10:05 U Epithel Cells (Auto) 1.0 /HPF (0-13.0) 10/11/17 10:05 Salicylates < 0.3 mg/dL (2.8-20.0) L 10/11/17 08:47 Urine Opiates Screen Presumptive negative 10/11/17 10:05 Urine Methadone Screen Presumptive negative 10/11/17 10:05 Acetaminophen < 15.0 ug/mL (10.0-30.0) 10/11/17 08:47 Ur Barbiturates Screen Presumptive negative 10/11/17 10:05 Ur Phencyclidine Scrn Presumptive negative 10/11/17 10:05 Ur Amphetamines Screen Presumptive negative 10/11/17 10:05 U Benzodiazepines Scrn Presumptive negative 10/11/17 10:05 Urine Cocaine Screen Presumptive negative 10/11/17 10:05 U Marijuana (THC) Screen Presumptive negative 10/11/17 10:05 Drugs of Abuse Note Disclamer 10/11/17 10:05 Plasma/Serum Alcohol < 0.01 gm% (0-0.07) 10/11/17 08:47
[2017-10-13] MEDS ORDERED: NON-FORMULARY (Rosuvastatin Calcium [Crestor] 20 MG) PO SCH (10:00)
[2017-10-13] MEDS ORDERED: NON-FORMULARY (Cetirizine Hcl [Zyrtec] 10 MG) PO SCH (10:00)
[2017-10-13] MEDS: HCTZ PO SCH (10:27)
[2017-10-13] MEDS: CLARITIN PO SCH (10:27)
[2017-10-13] MEDS: PROCARDIA XL PO SCH (10:28)
[2017-10-13] MEDS: BUSPAR PO SCH ×2 (14:19→22:18)
[2017-10-13] MEDS: APRESOLINE PO SCH ×2 (14:19→22:16)
--- NOTE | 2017-10-13 19:50 | Magnetic Resonance Report ---
FINAL REPORT EXAM: MR BRAIN WO CON HISTORY: seizures TECHNIQUE: CT head without contrast PRIORS: None. FINDINGS: No acute intra-axial or extra-axial hemorrhage is identified. There is no evidence of midline shift or mass effect. The ventricles and sulci are within normal limits. Foster-white matter differentiation is intact. No acute parenchymal abnormalities seen. There are patchy and confluent hypodensities within the supratentorial white matter. Bony calvarium is grossly intact. Visualized portions of the mastoids and paranasal sinuses are unremarkable. IMPRESSION: Chronic small vessel white matter ischemic change
[2017-10-14] MEDS: APRESOLINE PO SCH ×2 (05:38→15:48)
[2017-10-14] MEDS: D5NS 1,000 ML IV SCH (06:47)
--- NOTE | 2017-10-14 10:00 | Discharge Summary ---
Providers - Providers Date of Admission: 10/11/17 12:18 Attending physician: PAOLO DIXON MD 10/13/17 09:44 Consult to Physician [CONS] Routine Consulting Provider: FRANCES KAUR Reason For Exam: seizures Place consult to:: Sheela Notified:: yes Time called:: 10:00 Comment:: consult sent to his list Primary care physician: [employer] ADVISOR Hospitalization Condition: Good Hospital course: 67-year-old past medical history of hypertension and alcohol dependence. Present her with one episode of seizure. She went to have a CT of her head and MRI of her brain that did not show any acute findings. She'll also seen by neurology, she was started on Keppra, she remained seizure-free while she was in the hospital. She was counseled about alcohol cessation. Given outpatient resources advised strongly to quit alcohol. Discharge diagnoses Status epilepticus Hypertensive urgency Alcohol dependence Disposition: [id number]-06 HOME UNDER HOME [facility] Time spent for discharge: 33 minutes Core Measure Documentation - Palliative Care Palliative Care/ Comfort Measures: Not Applicable - Core Measures Any of the following diagnoses?: none Exam - Constitutional Vitals: Temp Pulse Resp BP Pulse Ox 98.8 F 112 H 18 138/65 99 10/14/17 07:44 10/14/17 07:44 10/14/17 07:44 10/14/17 07:44 10/14/17 07:44 General appearance: Present: no acute distress, well-nourished - EENT Eyes: Present: PERRL ENT: hearing intact, clear oral mucosa - Neck Neck: Present: supple, normal ROM - Respiratory Respiratory effort: normal Respiratory: bilateral: CTA - Cardiovascular Heart Sounds: Present: S1 & S2. Absent: rub, click - Extremities Extremities: pulses symmetrical, No edema Peripheral Pulses: within normal limits - Abdominal General gastrointestinal: Present: soft, non-tender, non-distended, normal bowel sounds Female genitourinary: Present: normal - Integumentary Integumentary: Present: clear, warm, dry - Musculoskeletal Musculoskeletal: gait normal, strength equal bilaterally - Psychiatric Psychiatric: appropriate mood/affect, intact judgment & insight - Neurologic Neurologic: CNII-XII intact, moves all extremities, other (lip smacking noted) Plan Follow up with: PRIMARY CAREMD [Primary Care Provider] - 3-5 Days Prescriptions: Famotidine [Pepcid] 40 mg PO QHS #30 tablet busPIRone [Buspar] 10 mg PO BID #60 tablet hydrALAZINE [Apresoline TAB] 25 mg PO Q8HR #90 tablet Hydrochlorothiazide [HCTZ] 25 mg PO QDAY #30 tablet levETIRAcetam [Keppra TAB] 750 mg PO BID #60 tablet NIFEdipine [Nifedipine ER] 30 mg PO DAILY #30 tab.er.[id number] Rosuvastatin Calcium [Crestor] 20 mg PO DAILY #30 tablet
[2017-10-14] MEDS: BUSPAR PO SCH (10:15)
[2017-10-14] MEDS: KEPPRA PO SCH (10:15)
[2017-10-14] MEDS: PROCARDIA XL PO SCH (10:15)
[2017-10-14] MEDS: CLARITIN PO SCH (10:16)
[2017-10-14] MEDS: PEPCID PO SCH (10:16)
[2017-10-14] MEDS: HCTZ PO SCH (10:16)
[2017-10-14] MEDS: LOVENOX SUB-Q SCH (10:16)
[2017-10-14] MEDS ORDERED: PNEUMOVAX 23 IM ONE (13:25)
[2017-10-14] MEDS ORDERED: Fluarix Quad 2017-2018(36 MOS+ IM ONE (13:25)
--- NOTE | 2017-10-14 13:41 | History and Physical Report ---
History of Present Illness Date of examination: 10/14/17 Date of admission: 10/11/17 12:18 Chief complaint: FOCUSED NEUROLOGY CONSULT NOTE: CC: I am asked to see this 67 AA F for eval of seizures. HPI: source from chart and pts daughter and from patient. the patient has just come up from [place] where she was living with another daughter to live with her daughter Hannah here in [place]. The patient has apparently had seizures since childhood, but has never been on meds for these. Her last seizure date unknown. Seizure frequency unknown. No fam hx Sz. Patient has been here only one month, drinks a six pack of beer QD, had one beer the day of admission then seized. no Sz since here in hosp. She feels well, no headache, no confusion, no perceived alteration of mental state, no hx of focal neuro sx or sgns at any time. CT head (images reviewed) shows only SVID, naught else EEG today shows background 8 - 10 Hz, nl drowsiness, no stage II sleep. DX: Normal awake and drowsy EEG. There is specifically no focal, lateralizing, or epileptiform abnormality. ROS: an 11 point ROS is negative NEURO EXAM: [place] - alert, oriented to "hospital", does not know city, does not know name of her new home town or city, knows year is 2016, does not know name of president. follows commands quickly and accurately. Daughter says her mental status is baseline. CN 2-12 - nl MOT - nl strength all four extrem, no increase in tone, orofacialbuccal dyskinesia without her false teeth in place. SENS - denies loss to touch all four extrem CEREB - fnf nl bilat DTR's - 1+ and symm all four extrem, great toes downgoing to plantar stim GAIT - not tested DX IMP: 1. Seizure disorder, long standing, with infrequent Sz by hx seemingly 2. Excess etoh intake 3. Suspect psychosocial impoverishment vs early dementia RECC: 1. Agree with use of Keppra. Neuro workup complete 2. Patient does not drive a car, never has, so this is not an issue 3. OK to DC home with daughter. F/U with PCP. Agree re etoh counseling. Kylah Coker MD Medications and Allergies Allergies Allergy/AdvReac Type Severity Reaction Status Date / Time lisinopril Allergy Angioedema Verified 04/18/17 20:06 Home Medications Medication Instructions Recorded Confirmed Last Taken Type Cetirizine HCl [ZyrTEC] 10 mg PO QDAY #30 capsule 04/18/17 10/12/17 Unknown Rx Famotidine [Pepcid] 40 mg PO QHS #30 tablet 10/14/17 Unknown Rx Hydrochlorothiazide [HCTZ] 25 mg PO QDAY #30 tablet 10/14/17 Unknown Rx NIFEdipine [Nifedipine ER] 30 mg PO DAILY #30 tab.er.24 10/14/17 Unknown Rx Rosuvastatin Calcium [Crestor] 20 mg PO DAILY #30 tablet 10/14/17 Unknown Rx busPIRone [Buspar] 10 mg PO BID #60 tablet 10/14/17 Unknown Rx hydrALAZINE [Apresoline TAB] 25 mg PO Q8HR #90 tablet 10/14/17 Unknown Rx levETIRAcetam [Keppra TAB] 750 mg PO BID #60 tablet 10/14/17 Unknown Rx Active Meds: Active Medications Acetaminophen (Tylenol) 650 mg PO Q4H PRN PRN Reason: Pain MILD(1-3)/Fever >100.5/TRINIDAD Atorvastatin Calcium (Lipitor) 40 mg PO QHS [facility] Last Admin: 10/13/17 22:17 Dose: 40 mg Bisacodyl (Dulcolax) 10 mg LA QDAY PRN PRN Reason: Constipation unrelieved by MOM Buspirone HCl (Buspar) 10 mg PO BID [facility] Last Admin: 10/14/17 10:15 Dose: 10 mg Chlordiazepoxide HCl (Librium) 50 mg PO Q1H PRN PRN Reason: CIWA-Ar 8-15 Chlordiazepoxide HCl (Librium) 100 mg PO Q1H PRN PRN Reason: CIWA-Ar 16-25 Enoxaparin Sodium (Lovenox) 40 mg SUB-Q QDAY@1000 [facility] Last Admin: 10/14/17 10:16 Dose: 40 mg Famotidine (Pepcid) 20 mg PO BID [facility] Last Admin: 10/14/17 10:16 Dose: 20 mg Guaifenesin (Robitussin) 200 mg PO Q6H PRN PRN Reason: Cough Last Admin: 10/13/17 09:43 Dose: 200 mg Haloperidol Lactate (Haldol) 5 mg IV Q1H PRN PRN Reason: Unrespon. to mult. doses BZD's Haloperidol Lactate (Haldol) 10 mg IV Q1H PRN PRN Reason: CIWA-Ar >15 and unrespon BZD's Hydralazine HCl (Apresoline) 5 mg IV Q6HR PRN PRN Reason: htn Last Admin: 10/13/17 09:38 Dose: 5 mg Hydralazine HCl (Apresoline) 25 mg PO Q8HR [facility] Last Admin: 10/14/17 05:38 Dose: 25 mg Hydrochlorothiazide (Hctz) 25 mg PO QDAY [facility] Last Admin: 10/14/17 10:16 Dose: 25 mg Dextrose/Sodium Chloride (D5ns) 1,000 mls @ 100 mls/hr IV DIRECT [facility] Last Admin: 10/14/17 06:47 Dose: 100 mls/hr Levetiracetam (Keppra) 750 mg PO BID [facility] Last Admin: 10/14/17 10:15 Dose: 750 mg Loratadine (Claritin) 10 mg PO DAILY [facility] Last Admin: 10/14/17 10:16 Dose: 10 mg Lorazepam (Ativan) 2 mg IV Q1H PRN PRN Reason: CIWA-Ar 8-15 Lorazepam (Ativan) 2 mg PO Q1H PRN PRN Reason: CIWA-Ar 8-15 Lorazepam (Ativan) 4 mg PO Q1H PRN PRN Reason: CIWA-Ar 16-25 Lorazepam (Ativan) 4 mg IV Q1H PRN PRN Reason: CIWA-Ar 16-25 Lorazepam (Ativan) 4 mg IV Q15MIN PRN PRN Reason: CIWA-Ar >25 Stop: 10/16/17 12:26 Magnesium Hydroxide (Milk Of Magnesia) 30 ml PO Q4H PRN PRN Reason: Constipation Nifedipine (Procardia Xl) 30 mg PO DAILY [facility] Last Admin: 10/14/17 10:15 Dose: 30 mg Ondansetron HCl (Zofran) 4 mg IV Q8H PRN PRN Reason: N/V unrelieved by Karen Physical Examination - Vital Signs Vital Signs: Vital Signs Pulse Ox 96 10/11/17 07:52 Results - Laboratory Findings CBC and BMP: 10/12/17 05:16 10/12/17 05:07 Abnormal Lab Findings: Abnormal Labs 10/12/17 10/12/17 10/13/17 05:07 05:16 01:09 WBC 4.1 L Plt Count 139 L [place] % (Auto) 11.6 H Lymph # 0.9 L Potassium 3.4 L Chloride 97.1 L Glucose 102 H Magnesium 1.40 L
[2017-10-14 15:35] VITALS: BP 126/74
== END 2017-10-14 18:51 | disposition home health service (06) | DRG 101 ==
LOC: ED 07:47 → 3A 12:18
PROVIDERS: ADMIT Internal Medicine; ATTEND Internal Medicine
PROC: 3E0234Z Introduction of Serum, Toxoid and Vaccine into Muscle, Percutaneous Approach (ICD-10-PCS; principal; 2017-10-14)
DX: G40.901 Epilepsy, unspecified, not intractable, with status epilepticus (principal); F10.20 Alcohol dependence, uncomplicated; I10 Essential (primary) hypertension; I16.0 Hypertensive urgency; Y90.9 Presence of alcohol in blood, level not specified; Z71.41 Alcohol abuse counseling and surveillance of alcoholic; Z88.6 Allergy status to analgesic agent; Z79.899 Other long term (current) drug therapy; Z82.49 Family history of ischemic heart disease and other diseases of the circulatory system; Z23 Encounter for immunization
CPT/HCPCS: 36415; 70450; 70551; 71010; 72125; 72170; 80053; 80307; 80320; 81001; 82040; 82140; 83036; 83735; 84443; 85025; 90686; 90732; 93005; 93010; 95819; 96374; 96375; A9270-GY; G0480; J0360; J1650; J1953; J2060; J3411; J3475; J7030; J7042